=== PATIENT | female | born 1995 ===

== ENCOUNTER 2017-11-11 11:00 | Emergency (ER) | payer OTHER ==
[2017-11-11 11:10] VITALS: BP 119/82
--- NOTE | 2017-11-11 11:33 | EDPHY ---
H & P Stated Complaint: L foot pain, Possible glass piece in L foot from 1 month ago. Time Seen by Provider: 11/11/17 11:05 HPI/ROS: CHIEF COMPLAINT: Possible retained foreign body in foot HISTORY OF PRESENT ILLNESS: This is a 22-year-old immunocompetent female who is concerned about the possibility of retained foreign body in the heel of her left foot. She stepped on broken glass 2 months ago and at that time used a pocket knife to remove a small piece of glass from the bottom of her foot. The skin has healed over and usually does not trouble her. However, on occasion she has pain at that site. She takes Naprosyn for pain and states that she has chronic pain involving her whole body, etiology undiagnosed. She uses Naprosyn for this pain. She has not had any signs of infection such as fever, warmth, redness, or swelling. REVIEW OF SYSTEMS: Limited review of systems was performed. She has had no recent fever. She has not recently been ill with a cold or cough, vomiting, or diarrhea. Past medical history: 1. Bipolar disease 2. 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 She does not use tobacco products. General Appearance: Alert. Vital signs reviewed. A focused exam was performed. Respiratory: Lungs are clear to auscultation; no wheezes, rales, or rhonchi. Cardiovascular: Regular rate and rhythm; no murmur, rub, or gallop. Skin: Warm and dry, no rashes on exposed skin, normal color. Extremities: There is a 4 cm areas scarring on the heel of her left foot, medially. There is no appreciable swelling or tenderness at this site. I am not able to reproduce pain. There is no warmth or erythema. She states that this is where she removed the glass. Neurological: Alert and oriented. Moving all four extremities easily and equally. Full active range of motion of her ankle and toes on the left. Sensation intact to light touch over her left foot. Psychiatric: Normal affect. - Personal History LMP (Females 10-55): 8-14 Days Ago Current Tetanus Diphtheria and Acellular Pertussis (TDAP): Yes Tetanus Vaccine Date: within 10 years - Medical/Surgical History Hx Asthma: No Hx Chronic Respiratory Disease: No Hx Diabetes: No Hx Cardiac Disease: No Hx Renal Disease: No Hx Cirrhosis: No Hx Alcoholism: No Hx HIV/AIDS: No Hx Splenectomy or Spleen Trauma: No Other PMH: Chronic pain - Social History Smoking Status: Never smoked Constitutional: Initial Vital Signs Temperature (C) 36.9 C 11/11/17 11:06 Heart Rate 71 11/11/17 11:06 Respiratory Rate 16 11/11/17 11:06 Blood Pressure 119/82 H 11/11/17 11:06 O2 Sat (%) 94 11/11/17 11:06 O2 Delivery Mode Room Air Allergies/Adverse Reactions: orange juice [oranges] Allergy (Verified 11/11/17 11:10) Pt reports vomiting, shakiness, "pass out" Home Medications: Medication Instructions Recorded [place] 11/11/17 Latuda 11/11/17 Lexapro 11/11/17 Naproxen 11/11/17 Omeprazole 11/11/17 Ondansetron 11/11/17 Medical Decision Making ED Course/Re-evaluation: No signs of infection. An informal bedside ultrasound was performed (no professional charge for this study) and no obvious foreign body was identified. She understands that the ultrasound does not preclude the possibility of a retained foreign body. Glass should be radio-opaque if it is over 2 mm in size. We talked about the possibility of an x-ray to look for retained glass. Her tetanus is up-to-date. I do not think that anyone would want to remove a foreign body in this setting, as her complaint is intermittent pain; there is nothing to suggest infection. It is also possible that she is experiencing pain due to scar tissue or for other reasons (plantar fasciitis is one possibility). She states that she is comfortable without additional evaluation. We discussed pain control and danger signs that should prompt her to be re-evaluated for this problem. Departure - Departure Disposition: Home, Routine, Self-Care Clinical Impression: Chronic pain in left foot Condition: Good Instructions: Soft Tissue Foreign Body (ED) Additional Instructions: As we discussed, I do not find clear evidence of foreign body, such as glass, in the heel of your left foot. There is no sign of infection. I do not recommend searching any further looking for retained glass. When you foot is painful, use the Naprosyn that you normally take and add Tylenol. If you show signs of infection such as fever, redness, warmth, or swelling--you should see your doctor and/or a coremaker experimental. Referrals: Maty Bynum [Primary Care Provider] - As per Instructions
== END 2017-11-11 11:36 | disposition home or self-care (01) ==
LOC: CED 11:00
DX: M79.672 Pain in left foot (principal); G89.29 Other chronic pain